=== PATIENT | male | born 1940 | race Caucasian/White ===

== ENCOUNTER 2018-01-16 15:50 | Inpatient (IN) | payer OTHER ==
[~2018-01-16] VITALS: Ht 180.3 cm; Wt 77.1 kg
[2018-01-16 15:53] VITALS: BP 127/67
--- NOTE | 2018-01-16 15:53 | NUR ---
PT BIBA TO ER BED 05
--- NOTE | 2018-01-16 16:00 | NUR ---
PATIENT KAITLIN SQUIRES FROM [facility] PRESENTS TO ED WITH C/O ALOC; ANSWER ALL QUESTIONS APPROPRIATELY; HX; DM, HTN; RX; INSULIN, [place]ARTAN; DENIES N/V/D; SKIN IS PINK/WARM/DRY; AAOX1; LUNGS CLEAR BL; HR EVEN AND REGULAR; PT DENIES ANY FEVER, CP, SOB, OR COUGH AT THIS TIME; PATIENT STATES PAIN OF 0/10 AT THIS TIME; VSS; PATIENT POSITIONED FOR COMFORT; HOB ELEVATED; BEDRAILS UP X2; BED DOWN. ER MD MADE AWARE OF PT STATUS.
[2018-01-16] MEDS ORDERED: LEVOFLOXACIN 500 MG/D5W PREMIX 100 ML IV ONE (16:05)
[2018-01-16] MEDS ORDERED: NACL 0.9% 1,000 ML IV ONE (16:05)
[2018-01-16 16:24] LABS: BASOPHILS % (AUTO) 0.2 % (0.0-2.0); EOSINOPHILS % (AUTO) 0.1 % (0.0-4.0); HEMATOCRIT 39.2 % (36-52); HEMOGLOBIN 13.5 g/dL (12.0-18.0); LYMPHOCYTES # (AUTO) 0.8 K/uL (2.0-11.5); LYMPHOCYTES % (AUTO) 9.6 % (20.5-51.1); MEAN CORPUSCULAR HEMOGLOBIN 28 pg (27-31); MEAN CORPUSCULAR HGB CONC 35 g/dL (33-37); MEAN CORPUSCULAR VOLUME 81.5 fL (80-94); MONOCYTES # (AUTO) 1.1 K/uL (0.8-1.0); NEUTROPHILS # (AUTO) 6.7 K/uL (1.8-7.7); NEUTROPHILS % (AUTO) 77.1 % (42.2-75.2); PLATELET COUNT (AUTO) 217 K/uL (140-450); RED BLOOD CELL COUNT(AUTO) 4.81 MIL/uL (4.20-6.10); RED CELL DISTRIBUTION WIDTH 14.4 % (11.6-13.7); WHITE BLOOD COUNT (AUTO) 8.7 K/uL (4.8-10.8)
[2018-01-16 16:40] LABS: ANION GAP 14.3 (8-16); CARBON DIOXIDE 26.4 mmol/L (21-32); CHLORIDE 103 mmol/L (98-107); CREATININE 1.2 mg/dL (0.7-1.3); GLUCOSE 177 mg/dL (74-106); POTASSIUM 3.7 mmol/L (3.5-5.1); SODIUM SERUM 140 mmol/L (136-145); UREA NITROGEN, BLOOD 29 mg/dL (7-18)
[2018-01-16 16:43] LABS: ALBUMIN 3.4 g/dL (3.4-5.0); ASPARTATE AMINOTRANSFERASE 50 U/L (15-37)
[2018-01-16] MEDS ORDERED: [UNRECOGNIZED DRUG - CODE] PO (16:54)
[2018-01-16] MEDS ORDERED: CLOP75TA55 PO (16:54)
[2018-01-16] MEDS ORDERED: LOSA50TA39 PO (16:54)
[2018-01-16] MEDS ORDERED: ASPI81CT89 PO (16:54)
[2018-01-16] MEDS ORDERED: TERA1CAP7 PO (16:54)
[2018-01-16] MEDS ORDERED: METF500T PO (16:54)
[2018-01-16] MEDS ORDERED: LIP80 PO (16:54)
--- NOTE | 2018-01-16 17:17 | NUR ---
PT UNABLE TO PROVIDE STOOL SAMPLE AT THIS TIME WITH PROVIDED BEDPAN, URINE SAMPLE SEND TO THE LAB
[2018-01-16 17:25] LABS: APPEARANCE,URINE SL CLOUDY (CLEAR); BILIRUBIN,URINE NEGATIVE (NEGATIVE); BLOOD, URINE 2+ (NEGATIVE); COLOR,URINE YELLOW (YELLOW); LEUKOCYTE ESTERASE ,URINE 3+ (NEGATIVE); NITRITE, URINE POSITIVE (NEGATIVE); UGLUCOSE NEGATIVE (NEGATIVE)
[2018-01-16 17:54] LABS: RBC,URINE 11-20 (MOD) /HPF (0-5); WBC,URINE TOO MANY TO COUNT /HPF (0-5)
[2018-01-16] MEDS ORDERED: ACETAMINOPHEN 325 MG TAB PO PRN (18:05)
[2018-01-16] MEDS ORDERED: ONDANSETRON 4 MG/2 ML VIAL IVP PRN (18:05)
--- NOTE | 2018-01-16 18:24 | NUR ---
CALLED TELE FOR BED, CHARGE WILL CALL BACK
[2018-01-16 18:35] LABS: PROTHROMBIN TIME 10.8 secs (10.8-13.4)
[2018-01-16 18:49] LABS: FREE T4 (FREE THYROXINE) 1.13 ng/dL (0.76-1.46); PHOSPHORUS 2.1 mg/dL (2.5-4.9); THYROID STIMULATING HORMONE 1.9 uIU/mL (0.34-3.74)
[2018-01-16 18:50] VITALS: BP 160/69
--- NOTE | 2018-01-16 18:50 | NUR ---
RECEIVED REPORT FROM ER NURSE PETAR. PT IS AAOX3 WITH GENERALIZED WEAKNESS. NO S/S OF ACUTE RESPIRATORY DISTRESS. DX UTI. MRSA DONE. VITALS TAKEN. SAFETY MEASURES IN PLACE. UPDATED BOARD.
--- NOTE | 2018-01-16 19:00 | NUR ---
Patient will be admitted to care of DR REA. Admited to TELE 121A. Belongings list completed. Report to SAJI WRIGHT
--- NOTE | 2018-01-16 19:05 | NUR ---
REPORT GIVEN TO WRAPPER LAYER NURSEKECIA. PT PERINEAL AREA LOOK RED AND SKIN UNDER BREAST IS ALSO RED. IT MIGHT BE INCONTINENT ASSOCIATED DERMATITIS. MADE NIGHT NURSE AWARE. PT GOT CLEANED BY CNAS, PT IN STABLE CONDITION.
--- NOTE | 2018-01-16 19:06 | NUR ---
RECEIVED REPORT FROM DAY SHIFT NURSE AT BEDSIDE FOR CONTINUITY OF CARE. PT IS AAOX3. PT IV NOTED RAC 20G SALINE LOCK. PT NO S/S OF DISTRESS. PT ON RA. NO SOB. NO COMPLAINTS OF PAIN AT THIS TIME. SKIN NON INTACT BLE CHEST CREASE DRYNESS AND BLE INCONTINENT DERMATITIS. BED LOWERED CALL LIGHT WITHIN REACH WILL CONTINUE TO MONITOR.
[2018-01-16] MEDS: NACL 0.9% 1,000 ML IV SCH (19:30)
--- NOTE | 2018-01-16 20:21 | NUR ---
RECEIVED HISTORY FROM DAUGHTER AT BEDSIDE PT IS LAYING IN BED. WILL CONTINUE TO MONITOR.
[2018-01-16] MEDS: DOCUSATE SODIUM 100 MG GELCAP PO SCH (21:16)
--- NOTE | 2018-01-16 21:30 | NUR ---
AWARE OF FULL CODE STATUS ON PT AND PT ON REGULAR DIET. ALSO REQUESTED FOR HYDRAGUARD FOR CHEST AND Z GUARD FOR INCONTINENT DERMATITIS. WILL CONTINUE TO MONITOR.
[2018-01-16] MEDS ORDERED: DEXTROSE 50% 50 ML SYR IVP PRN (22:30)
--- NOTE | 2018-01-16 22:30 | NUR ---
PT GOT UP FROM BED. WENT TO NURSES STATION AND REQUESTED SOMEONE TO TURN OFF THE IV MACHINE. PT APPEARED TO BE CONFUSED. PT WAS ORIENTED BACK TO BED. NEW IV WAS INSERTED RFA 22G. PT WAS PUT ON BED ALARM. AND PT REORIENTED TO CALL LIGHT IF IV IS BEEPING. WILL CONTINUE TO MONITOR.
[2018-01-16] MEDS ORDERED: cefTRIAXone 500 MG VIAL ONE (23:33)
[2018-01-16] MEDS ORDERED: Z-GUARD PASTE TP PRN (23:45)
[2018-01-17] VITALS (7 sets, daily range): BP systolic 101–142; BP diastolic 49–83
--- NOTE | 2018-01-17 | NUR ---
PT PULLED OUT IV FOR THE 2ND TIME. PT IS CONFUSED.
--- NOTE | 2018-01-17 00:30 | NUR ---
PT IS UPSET OF NOISE. REQUESTED FOR DOOR CLOSE BUT PT IS CONFUSED KEEPS WALKING UP AND GETTING OUT OF BED AND ASKING FOR THE TIME.
[2018-01-17] MEDS ORDERED: Z-GUARD PASTE TP ONE (01:53)
[2018-01-17] MEDS ORDERED: HYDRAGUARD CREAM TP ONE (01:53)
--- NOTE | 2018-01-17 04:42 | NUR ---
PT IS ASLEEP. NO S/S OF DISTRESS. NO SOB. ON RA. WILL CONTINUE TO MONITOR.
[2018-01-17] MEDS: BLOOD GLUCOSE MONITORING 1 DEV DEV FS SCH ×4 (06:21→21:06)
[2018-01-17] MEDS: INSULIN LISPRO SLIDING SCALE 100 UNITS/ML VIAL SUBQ PRN (06:27)
--- NOTE | 2018-01-17 07:15 | NUR ---
GAVE REPORT TO DAYSHIFT NURSE AT BEDSIDE FOR CONTINUITY OF CARE.
--- NOTE | 2018-01-17 07:20 | NUR ---
RECEIVED REPORT FROM COLLAR POINTER NURSE, PT IS AAOX2, PT HAS IV ON HIS LEFT FA, PATENT, INTACT, FLUSHING WELL, NO S/S OF RESPIRATORY DISTRESS OR DISCOMFORT NOTED, PT HAS INCONTINENT DERMATITIS, AROUND THE GROIN AREA, PT HAS DRYNESS ON HIS CHEST, DISCUSSED PLAN OF CARE WITH PT, PT VERBALIZED UNDERSTANDING, CALL LIGHT IS WITHIN REACH, SAFETY/FALL PRECAUTIONS ARE IN PLACE, CALL LIGHT IS WITHIN REACH, WILL CONTINUE TO MONITOR.
[2018-01-17] MEDS: ASPIRIN 81 MG TAB.CHEW PO SCH (08:37)
[2018-01-17] MEDS: ATORVASTATIN 80 MG TAB PO SCH (08:37)
[2018-01-17] MEDS: LOSARTAN 50 MG TAB PO SCH (08:37)
[2018-01-17] MEDS: CLOPIDOGREL 75 MG TAB PO SCH (08:37)
[2018-01-17] MEDS: LACTOBACILLUS RHAMNOSUS GG 1 EACH CAP PO SCH (08:38)
[2018-01-17] MEDS: HYDRAGUARD CREAM TP SCH (08:38)
[2018-01-17] MEDS: metFORMIN 500 MG TAB PO SCH ×2 (08:38→20:28)
[2018-01-17] MEDS: DOCUSATE SODIUM 100 MG GELCAP PO SCH ×2 (08:38→20:27)
--- NOTE | 2018-01-17 08:38 | NUR ---
DUE MEDICATIONS GIVEN, PT TOLERATED WELL, CALL LIGHT IS WITHIN REACH.
--- NOTE | 2018-01-17 08:56 | NUR ---
PATIENT HAS BEEN SCREENED AND CATEGORIZED HIGH NUTRITION RISK. PATIENT WILL BE SEEN WITHIN 1-2 DAYS OF ADMISSION. 01/17/18 01/18/[address]
[2018-01-17] MEDS ORDERED: DOCUSATE SODIUM 100 MG GELCAP PO SCH (09:00)
--- NOTE | 2018-01-17 10:20 | NUR ---
PT SLEEPING IN BED AT THIS TIME, CALL LIGHT WITHIN REACH.
--- NOTE | 2018-01-17 14:30 | NUR ---
PT HAD LOOSE, SMALL BOWEL MOVEMENT. PATIENT'S GOWN, LINENS CHANGED. ALL NEEDS ARE MET AT THIS TIME, PT GIVEN A BEDSIDE COMMODE. CALL LIGHT IS WITHIN REACH.
--- NOTE | 2018-01-17 15:15 | NUR ---
01/17/18 RD INITIAL ASSESSMENT COMPLETED PLEASE REFER TO NUTRITION ASSESSMENT UNDER CARE ACTIVITY FOR ESTIMATED NUTRITIONAL NEEDS. 1. CONTINUE CCHO 60 GM DIET TOLERATED 2. PROVIDE NUTRITION EDUCATION FOR DIARRHEA 3. RD TO FOLLOW-UP 3-5 DAYS, MODERATE RISK TERESITA SLOAN, RD
[2018-01-17] MEDS: NACL 0.9% 1,000 ML IV SCH (15:39)
--- NOTE | 2018-01-17 16:30 | NUR ---
PT IS RESTING IN BED, CALL LIGHT IS WITHIN REACH.
--- NOTE | 2018-01-17 18:05 | NUR ---
PATIENT PULLED OUT HIS IV. PT CONFUSED, PT ORIENTED BACK INTO BED.
[2018-01-17] MEDS ORDERED: SODIUM PHOS / POTASSIUM PHOS 1 PKT PDR PO SCH (18:15)
--- NOTE | 2018-01-17 19:00 | NUR ---
NEW IV INSERTED ON HIS RIGHT HAND, #20 G, PATENT, INTACT, FLUSHING WELL.
--- NOTE | 2018-01-17 19:30 | NUR ---
ENDORSED PT TO WARDROBE SPECIALIST NURSE FOR CONTINUITY OF CARE. PT STABLE AT THIS TIME.
--- NOTE | 2018-01-17 19:31 | NUR ---
RECEIVED PT REPORT FROM DAYSHIFT NURSE AT BEDSIDE FOR CONTINUITY OF CARE. PT AWAKE AOX2. PATIENT IS CONFUSED AT TIMES AND IS BOTHERED FROM LOUD NOISES. IV NOTED L HAND 20G NS 50ML/HR. NO S/S OF DISTRESS. NO SOB. PT ON ROOM AIR. BED LOWERED BED ALARM ARMED. CALL LIGHT WITHIN REACH. WILL CONTINUE TO MONITOR.
[2018-01-17] MEDS: TERAZOSIN 1 MG CAP PO SCH (20:28)
--- NOTE | 2018-01-17 20:30 | NUR ---
GAVE THE PATIENT HIS MEDS. PT TOOK MEDS WELL. PT IS BOTHERED FROM NOISE. PT WAS ON BEDSIDE COMMODE. WILL CONTINUE TO MONITOR.
[2018-01-17] MEDS ORDERED: TEMAZEPAM 15 MG CAP ONE (22:16)
--- NOTE | 2018-01-17 23:02 | NUR ---
PT IS SLEEPING. NO SOB. NO S/S OF DISTRESS. WILL CONTINUE TO MONITOR.
[2018-01-18 04:00] VITALS: BP 125/44
--- NOTE | 2018-01-18 04:09 | NUR ---
ASSESSED PT VITALS. PT ASLEEP. WILL CONTINUE TO MONITOR.
[2018-01-18 06:03] LABS: BASOPHILS % (AUTO) 0.3 % (0.0-2.0); EOSINOPHILS # (AUTO) 0.1 K/uL (0-0.4); EOSINOPHILS % (AUTO) 1.4 % (0.0-4.0); HEMATOCRIT 35.6 % (36-52); HEMOGLOBIN 12.1 g/dL (12.0-18.0); LYMPHOCYTES # (AUTO) 1.2 K/uL (2.0-11.5); LYMPHOCYTES % (AUTO) 14.7 % (20.5-51.1); MEAN CORPUSCULAR HEMOGLOBIN 28 pg (27-31); MEAN CORPUSCULAR HGB CONC 34 g/dL (33-37); MEAN CORPUSCULAR VOLUME 81.2 fL (80-94); MONOCYTES % (AUTO) 12.6 % (1.7-9.3); NEUTROPHILS # (AUTO) 5.6 K/uL (1.8-7.7); PLATELET COUNT (AUTO) 194 K/uL (140-450); RED BLOOD CELL COUNT(AUTO) 4.39 MIL/uL (4.20-6.10); RED CELL DISTRIBUTION WIDTH 14.2 % (11.6-13.7); WHITE BLOOD COUNT (AUTO) 7.9 K/uL (4.8-10.8)
[2018-01-18 06:27] LABS: ANION GAP 14.5 (8-16); CARBON DIOXIDE 22.8 mmol/L (21-32); CHLORIDE 108 mmol/L (98-107); CREATININE 0.9 mg/dL (0.7-1.3); GLUCOSE 137 mg/dL (74-106); POTASSIUM 3.3 mmol/L (3.5-5.1); SODIUM SERUM 142 mmol/L (136-145); UREA NITROGEN, BLOOD 28 mg/dL (7-18)
[2018-01-18 06:34] LABS: MAGNESIUM 2.2 mg/dL (1.8-2.4); PHOSPHORUS 3.7 mg/dL (2.5-4.9)
[2018-01-18] MEDS: BLOOD GLUCOSE MONITORING 1 DEV DEV FS SCH ×4 (06:54→21:37)
--- NOTE | 2018-01-18 07:25 | NUR ---
GAVE PT REPORT AT BEDSIDE TO DAYSHIFT NURSE FOR CONTINUITY OF CARE.
[2018-01-18 08:00] VITALS: BP 124/66
--- NOTE | 2018-01-18 08:00 | NUR ---
INITIAL ASSESSMENT PERFORMED.ALERT AND ABLE TO MAKE NEEDS KNOWN. NO ACUTE DISTRESS NOTED. LUNG SOUNDS CLEAR. BOWEL SOUNDS ACTIVE. PATIENT STATED LBM 01/17/18. PATIENT CONT ON CCHO DIET AND TOLERATING WELL. DENIES PAIN AT THIS TIME.PATIENT WITH SCALY REDNESS TO BILAT UNDER BREAST. AND REDNESS TO GROIN AND BUTTOCKS. PATIENT WITH LEFT HAND 20G WITH NS RUNNING AT 50ML/HR. BOARD UPDATED. DISCUSSED PLAN OF CARE WITH PATIENT AT BEDSIDE. PATIENT ORIENTED TO ROOM. CALL LIGHT WITHIN REACH. WILL CONT TO MONITOR.
[2018-01-18] MEDS: HYDRAGUARD CREAM TP SCH (08:25)
[2018-01-18] MEDS: SODIUM PHOS / POTASSIUM PHOS 1 PKT PDR PO SCH (08:26)
[2018-01-18] MEDS: DOCUSATE SODIUM 100 MG GELCAP PO SCH ×2 (08:26→21:36)
[2018-01-18] MEDS: LACTOBACILLUS RHAMNOSUS GG 1 EACH CAP PO SCH (08:26)
[2018-01-18] MEDS: metFORMIN 500 MG TAB PO SCH ×2 (08:26→21:36)
[2018-01-18] MEDS: ASPIRIN 81 MG TAB.CHEW PO SCH (08:26)
[2018-01-18] MEDS: ATORVASTATIN 80 MG TAB PO SCH (08:26)
[2018-01-18] MEDS: CLOPIDOGREL 75 MG TAB PO SCH (08:26)
[2018-01-18] MEDS: LOSARTAN 50 MG TAB PO SCH (08:27)
--- NOTE | 2018-01-18 08:30 | NUR ---
ADMINISTERED MORNING MEDICATIONS ORDERED. TOLERATED WELL. WILL CONT TO MONITOR.
[2018-01-18] MEDS: NACL 0.9% 1,000 ML IV SCH (09:00)
[2018-01-18] MEDS ORDERED: POTASSIUM CHLORIDE 10 MEQ TABER PO SCH (09:30)
--- NOTE | 2018-01-18 11:07 | NUR ---
PATIENT HAD LARGE BM IN BSC. PATIENT SITTING AT BEDSIDE WITH BED ALARM ON. WILL CONT TO MONITOR.
[2018-01-18 12:00] VITALS: BP 119/67
[2018-01-18] MEDS: INSULIN LISPRO SLIDING SCALE 100 UNITS/ML VIAL SUBQ PRN ×2 (12:45→21:40)
--- NOTE | 2018-01-18 12:45 | NUR ---
PATIENT HAD LUNCH AND TOLERATED WELL. PATIENT THEN HAD BM USING BSC. WILL CONT TO MONITOR.
--- NOTE | 2018-01-18 14:34 | NUR ---
PATIENT IN ROOM BEING CHANGED. PATIENT HAD BM. PATIENT CLEAN AND DRY. WILL CONT TO MONITOR.
[2018-01-18 16:00] VITALS: BP 133/69
--- NOTE | 2018-01-18 17:21 | NUR ---
PATIENT IN BED RESTING. NO ACUTE DISTRESS. RESP EVEN AND UNLABORED. WILL CONT TO MONITOR.
--- NOTE | 2018-01-18 19:18 | NUR ---
ENDORSED REPORT TO HEATER INSTALLER NURSE. PATIENT STABLE.
--- NOTE | 2018-01-18 19:25 | NUR ---
RECEIVED FROM AM RN IN BED SLEEPING. WOKE UP EASILY WHEN CALLED BY NAME. DX. OF UTI. PT. NOTED WITH CONFUSION. PER AM RN HE CAN STAND UP AND GOES BEDSIDE COMMODE. IVF SITE PULLED OUT UNDER HIS BLANKET AND BEEN HOLDING IT IN HIS HAND WHEN I INSPECTED IT. TIP INTACT. BED ALARM ON AND PT. IS SITUATED NEAR NURSING UNIT. SEQUENTIALS IN PLACE. WILL INSERT NEW IVF LINE. AFEBRILE. NEEDS WILL BE ANTICIPATED AND WILL BE MET.
[2018-01-18] MEDS ORDERED: TEMAZEPAM 15 MG CAP PO SCH (21:00)
[2018-01-18] MEDS: TERAZOSIN 1 MG CAP PO SCH (21:37)
--- NOTE | 2018-01-18 21:45 | NUR ---
PT. ABLE TO SWALLOW ALL P.O. MEDICATIONS. NO ASPIRATION S/S NOTED. PT. ABLE TO VERBALIZE NEEDS.
--- NOTE | 2018-01-19 00:15 | NUR ---
SLEEPING.CALL LIGHT WITH IN REACH AND BED ALARM ON.
[2018-01-19 00:38] VITALS: BP 125/50
--- NOTE | 2018-01-19 02:49 | NUR ---
SLEEPING. NO RESTLESSNESS. PT. TURNED BY CNAS Q 2H. ENCOURAGED TO TURN. ABLE TO MOVE SELF.
[2018-01-19 06:13] LABS: BASOPHILS % (AUTO) 0.4 % (0.0-2.0); EOSINOPHILS # (AUTO) 0.1 K/uL (0-0.4); EOSINOPHILS % (AUTO) 1.9 % (0.0-4.0); HEMOGLOBIN 11.8 g/dL (12.0-18.0); LYMPHOCYTES # (AUTO) 1.3 K/uL (2.0-11.5); LYMPHOCYTES % (AUTO) 17.1 % (20.5-51.1); MEAN CORPUSCULAR HEMOGLOBIN 28 pg (27-31); MEAN CORPUSCULAR HGB CONC 34 g/dL (33-37); MEAN CORPUSCULAR VOLUME 82.2 fL (80-94); MONOCYTES # (AUTO) 0.8 K/uL (0.8-1.0); MONOCYTES % (AUTO) 11.1 % (1.7-9.3); NEUTROPHILS # (AUTO) 5.1 K/uL (1.8-7.7); NEUTROPHILS % (AUTO) 69.5 % (42.2-75.2); PLATELET COUNT (AUTO) 220 K/uL (140-450); RED BLOOD CELL COUNT(AUTO) 4.26 MIL/uL (4.20-6.10); RED CELL DISTRIBUTION WIDTH 14.4 % (11.6-13.7); WHITE BLOOD COUNT (AUTO) 7.3 K/uL (4.8-10.8)
[2018-01-19 06:33] LABS: ANION GAP 10.8 (8-16); CARBON DIOXIDE 26.5 mmol/L (21-32); CHLORIDE 108 mmol/L (98-107); GLUCOSE 143 mg/dL (74-106); POTASSIUM 3.3 mmol/L (3.5-5.1); SODIUM SERUM 142 mmol/L (136-145); UREA NITROGEN, BLOOD 22 mg/dL (7-18)
[2018-01-19 06:40] LABS: MAGNESIUM 2.3 mg/dL (1.8-2.4); PHOSPHORUS 3.5 mg/dL (2.5-4.9)
[2018-01-19] MEDS: BLOOD GLUCOSE MONITORING 1 DEV DEV FS SCH ×2 (06:42→11:30)
--- NOTE | 2018-01-19 07:10 | NUR ---
RECEIVED REPORT FROM TOBACCO DRUMMER RN. PATIENT IS AAOX2-3, HAS NO SIGNS AND SYMPTOMS OF ACUTE DISTRESS NOTED AT THIS TIME. DISCUSSED PLAN OF CARE WITH PATIENT AND HE VERBALIZED UNDERSTANDING. HAS IV TO THE LEFT WRIST 20G, INFUSING NS AT 50ML/HR. SITE IS CLEAN, DRY, PATENT AND INTACT. BEDSIDE COMMODE IS NEXT TO BED. BED IN LOWEST POSITION, SIDE RAILS UP X2, CALL LIGHT WITHIN REACH. WILL CONTINUE TO MONITOR.
--- NOTE | 2018-01-19 07:27 | NUR ---
SLEPT WELL THIS SHIFT. ASSISTED TO BEDSIDE COMMODE RT FEELING OF GOING BM. ONLY HAD 1 LIQUIDY STOOL X 1 IN BED. ENDORSED TO THE NEXT RN FOR CONTINUITY OF CARE AWAKE AND ALERT. ABLE TO ANSWER BACK SIMPLE QUESTIONS WITHOUT S/S OF CONFUSION. DENIES PAIN.
[2018-01-19] MEDS: NACL 0.9% 1,000 ML IV SCH (07:30)
[2018-01-19 08:00] VITALS: BP 140/59
[2018-01-19] MEDS: ASPIRIN 81 MG TAB.CHEW PO SCH (09:03)
[2018-01-19] MEDS: metFORMIN 500 MG TAB PO SCH (09:04)
[2018-01-19] MEDS: DOCUSATE SODIUM 100 MG GELCAP PO SCH (09:04)
[2018-01-19] MEDS: ATORVASTATIN 80 MG TAB PO SCH (09:04)
[2018-01-19] MEDS: SODIUM PHOS / POTASSIUM PHOS 1 PKT PDR PO SCH (09:04)
[2018-01-19] MEDS: CLOPIDOGREL 75 MG TAB PO SCH (09:04)
[2018-01-19] MEDS: LOSARTAN 50 MG TAB PO SCH (09:04)
[2018-01-19] MEDS: HYDRAGUARD CREAM TP SCH (09:07)
[2018-01-19] MEDS ORDERED: POTASSIUM CHLORIDE 10 MEQ TABER PO SCH (09:30)
[2018-01-19] MEDS: LACTOBACILLUS RHAMNOSUS GG 1 EACH CAP PO SCH (09:35)
[2018-01-19] MEDS ORDERED: METF500T PO (10:48)
[2018-01-19] MEDS ORDERED: LACT1.4C PO (10:48)
[2018-01-19] MEDS ORDERED: LEVO750T2 PO (10:49)
--- NOTE | 2018-01-19 13:45 | NUR ---
DISCHARGE ORDER IS IN PLACE, PATIENT GOING BACK TO [facility]. DAUGHTER HERE TO TRANSPORT HIM OVER. SAJI FOX HAD THEM SIGN THE PAPERWORK AND GAVE THEM DISCHARGE INSTRUCTION. SHE ALSO REMOVED THE IV FROM SITE. PATIENT WHEELED OUT.
== END 2018-01-19 13:45 | disposition home or self-care (01) | DRG 371 ==
LOC: MED 15:50 → MMU 18:12 → MTU 18:50
PROVIDERS: ADMIT Family Medicine Sports Medicine; ATTEND Family Medicine Sports Medicine
DX: A04.72 Enterocolitis due to Clostridium difficile, not specified as recurrent (principal); N17.0 Acute kidney failure with tubular necrosis; D68.59 Other primary thrombophilia; E11.65 Type 2 diabetes mellitus with hyperglycemia; E11.51 Type 2 diabetes mellitus with diabetic peripheral angiopathy without gangrene; E11.69 Type 2 diabetes mellitus with other specified complication; N39.0 Urinary tract infection, site not specified; E83.39 Other disorders of phosphorus metabolism; A08.4 Viral intestinal infection, unspecified; E86.0 Dehydration; N40.0 Benign prostatic hyperplasia without lower urinary tract symptoms; E78.5 Hyperlipidemia, unspecified; E87.6 Hypokalemia; I10 Essential (primary) hypertension; Z79.82 Long term (current) use of aspirin; Z79.899 Other long term (current) drug therapy; Z87.891 Personal history of nicotine dependence; Z86.73 Personal history of transient ischemic attack (TIA), and cerebral infarction without residual deficits; Z79.84 Long term (current) use of oral hypoglycemic drugs; D64.9 Anemia, unspecified; E87.8 Other disorders of electrolyte and fluid balance, not elsewhere classified
CPT/HCPCS: 36415; 71045; 80048; 80053; 81001; 82150; 82948; 83036; 83605; 83690; 83735; 83880; 84100; 84439; 84443; 84484; 85025; 85610; 85730; 87040; 87045; 87081; 87086; 87186; 93005; 93925; 93970; 96361; 96365; 99285; J0696; J1815; J1956; J7030; J7060; Q0092

== ENCOUNTER 2019-01-06 20:44 | Emergency (ER) | payer OTHER ==
[~2019-01-06] VITALS: Ht 175.3 cm; Wt 77.1 kg
[~2019-01-06 20:44] MED LIST: ASPI-1718 PO; CLOP75TA55 PO; LACT1.4C PO; LEVO750T2 PO; LIP80 PO; LOSA50TA66 PO; METF500T PO; TERA1CAP7 PO; [UNRECOGNIZED DRUG - CODE] PO
[2019-01-06 20:47] VITALS: BP 157/77
--- NOTE | 2019-01-06 20:50 | NUR ---
Alma humphries in ED - 01/06/19 at 2054 by DEBBIE PT AMBULATED BACK TO [facility]
--- NOTE | 2019-01-06 21:07 | NUR ---
PT TO BED 3.
--- NOTE | 2019-01-06 21:31 | NUR ---
DR. MILLER EVALUATING PT BEDSIDE
--- NOTE | 2019-01-06 21:38 | NUR ---
PT PRESENTS TO ED WITH C/O RLQ ABD PAIN INCREASING OVER 3 DAYS. PT DENIES N/V. BUT REPORTS DIARRHEA. ABD IS SOFT NON TENDER. PT REPORTS MILD PAIN TO PALPATION OF RLQ. NO OBVIOUS DISTENTION NOTED. PT PLACED INTO BED, PENDING MD BOATENG.
[2019-01-06 21:53] LABS: BASOPHILS # (AUTO) 0.1 K/uL (0.00-0.22); EOSINOPHILS # (AUTO) 0.1 K/uL (0-0.4); EOSINOPHILS % (AUTO) 1.4 % (0.0-4.0); HEMATOCRIT 33.5 % (36-52); HEMOGLOBIN 11.3 g/dL (12.0-18.0); LYMPHOCYTES # (AUTO) 1.6 K/uL (2.0-11.5); LYMPHOCYTES % (AUTO) 18.2 % (20.5-51.1); MEAN CORPUSCULAR HEMOGLOBIN 28 pg (27-31); MEAN CORPUSCULAR HGB CONC 34 g/dL (33-37); MEAN CORPUSCULAR VOLUME 82.6 fL (80-94); MONOCYTES # (AUTO) 0.7 K/uL (0.8-1.0); MONOCYTES % (AUTO) 7.8 % (1.7-9.3); NEUTROPHILS # (AUTO) 6.2 K/uL (1.8-7.7); NEUTROPHILS % (AUTO) 71.6 % (42.2-75.2); PLATELET COUNT (AUTO) 300 K/uL (140-450); RED BLOOD CELL COUNT(AUTO) 4.05 MIL/uL (4.20-6.10); RED CELL DISTRIBUTION WIDTH 14.7 % (11.6-13.7); WHITE BLOOD COUNT (AUTO) 8.6 K/uL (4.8-10.8)
--- NOTE | 2019-01-06 21:54 | NUR ---
PT UNABLE TO VOID AT THIS TIME. PROVIDED WITH URINAL AT BEDSIDE, ENCOURAGED TO USE.
--- NOTE | 2019-01-06 21:55 | NUR ---
PT TO CT VIA [facility].
[2019-01-06 22:00] LABS: ANION GAP 14.1 (8-16); CARBON DIOXIDE 26.2 mmol/L (21-32); CHLORIDE 104 mmol/L (98-107); CREATININE 1.5 mg/dL (0.7-1.3); GLUCOSE 120 mg/dL (74-106); POTASSIUM 4.3 mmol/L (3.5-5.1); SODIUM SERUM 140 mmol/L (136-145); UREA NITROGEN, BLOOD 21 mg/dL (7-18)
[2019-01-06 22:06] LABS: ALBUMIN 3.6 g/dL (3.4-5.0); ASPARTATE AMINOTRANSFERASE 20 U/L (15-37); LIPASE 200 U/L (73-393); TOTAL BILIRUBIN 0.4 mg/dL (0.0-1.0)
[2019-01-06 22:28] LABS: APPEARANCE,URINE HAZY (CLEAR); BILIRUBIN,URINE NEGATIVE (NEGATIVE); BLOOD, URINE TRACE-L (NEGATIVE); COLOR,URINE YELLOW (YELLOW); LEUKOCYTE ESTERASE ,URINE 3+ (NEGATIVE); NITRITE, URINE NEGATIVE (NEGATIVE); UGLUCOSE NEGATIVE (NEGATIVE)
[2019-01-06 22:38] LABS: RBC,URINE 0-5 /HPF (0-5); WBC,URINE TOO MANY TO COUNT /HPF (0-5)
--- NOTE | 2019-01-07 00:15 | NUR ---
# 14 FR Peace catheter with 10 ml utilizing sterile technique. Immediate return of 100 ml urine noted. Bedside drainage bag placed below level of bladder. Urine sample collected and sent to lab. Pt tolerated procedure WELL.
[2019-01-07] MEDS ORDERED: cefTRIAXone 1,000 MG in LIDOCAINE MPF 1% - 5 mL VIAL 2.1 ML IM ONE (00:20)
[2019-01-07] MEDS ORDERED: LIDOCAINE MPF 1% 5mL VIAL ONE (00:30)
[2019-01-07] MEDS ORDERED: cefTRIAXone 1,000 MG VIAL ONE (00:30)
--- NOTE | 2019-01-07 01:13 | NUR ---
1800ML RED URINE EMPTIED FROM BARBER DRAINAGE BAG. DRAINAGE BAG SWITCHED TO LEG BAG.
[2019-01-07 01:22] VITALS: BP 167/72
--- NOTE | 2019-01-07 01:23 | NUR ---
Patient discharged with v/s stable. Written and verbal after care instructions given and explained. Patient alert, oriented and verbalized understanding of instructions. Ambulatory with steady gait to [facility] via taxi, to be received by facility person verified by surveyor. All questions addressed prior to discharge. ID band removed. Patient advised to follow up with PMD. Rx of KEFLEX given. Patient educated on indication of medication including possible reaction and side effects. Opportunity to ask questions provided and answered.
== END 2019-01-07 01:23 | disposition home or self-care (01) ==
LOC: MED 20:44
DX: R33.9 Retention of urine, unspecified (principal); N39.0 Urinary tract infection, site not specified; E11.9 Type 2 diabetes mellitus without complications; I10 Essential (primary) hypertension; Z79.82 Long term (current) use of aspirin; Z79.84 Long term (current) use of oral hypoglycemic drugs; Z79.899 Other long term (current) drug therapy
CPT/HCPCS: 36415; 51702; 74176; 80053; 81001; 83690; 85025; 87086; 96372; 99284; J0696; J2001

== ENCOUNTER 2019-09-21 15:31 | Emergency (ER) | payer OTHER ==
[~2019-09-21] VITALS: Ht 180.3 cm; Wt 81.6 kg
[2019-09-21 15:38] VITALS: BP 114/60
--- NOTE | 2019-09-21 15:40 | NUR ---
JESUS ALBERTO FROM [facility] C/O RIGHT BACK PAIN S/P FALL X 1.30 HOURS AGO. MED HX: DM, ALZHEIMER, HTN. PATIENT STATES PAIN OF 7/10 AT THIS TIME. PATIENT POSITIONED FOR COMFORT; HOB ELEVATED; BEDRAILS UP X1; BED DOWN. ER MD MADE AWARE OF PT STATUS.
--- NOTE | 2019-09-21 18:00 | NUR ---
CALLED [place] [phone]; NO ANSWERING.
[2019-09-21 18:05] VITALS: BP 111/60
--- NOTE | 2019-09-21 18:05 | NUR ---
Patient discharged with v/s stable. Written and verbal after care instructions given and explained. Patient verbalized understanding. Ambulatory with to longterm. All questions addressed prior to discharge. Advised to follow up with PMD.
== END 2019-09-21 18:05 | disposition home or self-care (01) ==
LOC: MED 15:31
DX: M54.9 Dorsalgia, unspecified (principal); E11.9 Type 2 diabetes mellitus without complications; I10 Essential (primary) hypertension; G30.9 Alzheimer's disease, unspecified; Z79.82 Long term (current) use of aspirin; Z79.84 Long term (current) use of oral hypoglycemic drugs; Z79.899 Other long term (current) drug therapy; W19.XXXA Unspecified fall, initial encounter; Y93.89 Activity, other specified; Y92.89 Other specified places as the place of occurrence of the external cause; Y99.8 Other external cause status
CPT/HCPCS: 81002; 99284

== ENCOUNTER 2019-10-19 23:07 | Emergency (ER) | payer OTHER ==
[~2019-10-19] VITALS: Ht 172.7 cm; Wt 70.3 kg
--- NOTE | 2019-10-19 23:07 | NUR ---
PT JESUS ALBERTO BLS. TAKEN TO BED 5
[2019-10-19 23:09] VITALS: BP 113/65
--- NOTE | 2019-10-19 23:12 | NUR ---
79 Y/O MALE BIBA WITH C/O ALTERED MENTAL STATUS AND WORSENING VISION SINCE THIS MORNING. PER EMS PT HAS BEEN MORE VERBALLY AGGRESSIVE TOWARD STAFF AT [facility]. STATES NO PAIN AT THIS TIME. GCS 14. RR EVEN AND UNLABORED. DENIES N/V/D. PT LAYING IN BED CALM AND PLEASANT. VSS MEDHX: DM, HTN, ALZHEIMERS
--- NOTE | 2019-10-19 23:36 | NUR ---
Dr. Melgoza examining patient.
--- NOTE | 2019-10-20 00:03 | NUR ---
PT GIVEN URINAL FOR URINE COLLECTION.
--- NOTE | 2019-10-20 00:15 | NUR ---
PATIENT UNABLE TO URINATE. STRAIGHT CATH USED TO COLLECTED URINE SAMPLE USING STERILE TECHNIQUE. PATIENT TOLERATED PROCEDURE WELL.
[2019-10-20 00:20] LABS: BASOPHILS % (AUTO) 0.4 % (0.0-2.0); EOSINOPHILS # (AUTO) 0.1 K/uL (0-0.4); EOSINOPHILS % (AUTO) 1.3 % (0.0-4.0); HEMATOCRIT 33.4 % (36-52); LYMPHOCYTES # (AUTO) 1.6 K/uL (2.0-11.5); LYMPHOCYTES % (AUTO) 15.3 % (20.5-51.1); MEAN CORPUSCULAR HEMOGLOBIN 26 pg (27-31); MEAN CORPUSCULAR HGB CONC 33 g/dL (33-37); MEAN CORPUSCULAR VOLUME 80.2 fL (80-94); MONOCYTES # (AUTO) 0.8 K/uL (0.8-1.0); MONOCYTES % (AUTO) 7.8 % (1.7-9.3); NEUTROPHILS # (AUTO) 7.6 K/uL (1.8-7.7); NEUTROPHILS % (AUTO) 75.2 % (42.2-75.2); PLATELET COUNT (AUTO) 331 K/uL (140-450); RED BLOOD CELL COUNT(AUTO) 4.16 MIL/uL (4.20-6.10); RED CELL DISTRIBUTION WIDTH 15.3 % (11.6-13.7); WHITE BLOOD COUNT (AUTO) 10.2 K/uL (4.8-10.8)
[2019-10-20 00:37] LABS: ANION GAP 16.7 (8-16); CARBON DIOXIDE 24.9 mmol/L (21-32); CHLORIDE 104 mmol/L (98-107); CREATININE 1.5 mg/dL (0.6-1.3); GLUCOSE 124 mg/dL (74-106); POTASSIUM 3.6 mmol/L (3.5-5.1); SODIUM SERUM 142 mmol/L (136-145)
--- NOTE | 2019-10-20 00:39 | NUR ---
PATIENT ATTEMPTING TO GET OUT OF BED. RE-ORIENTED PT AND DIRECTED BACK TO BED. SIDE RAILS UP AND LIGHTS DIMMED.
[2019-10-20 00:58] LABS: UREA NITROGEN, BLOOD 19 mg/dL (7-18)
[2019-10-20 01:40] LABS: APPEARANCE,URINE CLOUDY (CLEAR); BILIRUBIN,URINE NEGATIVE (NEGATIVE); BLOOD, URINE 1+ (NEGATIVE); COLOR,URINE YELLOW (YELLOW); LEUKOCYTE ESTERASE ,URINE 3+ (NEGATIVE); NITRITE, URINE POSITIVE (NEGATIVE); UGLUCOSE NEGATIVE (NEGATIVE)
[2019-10-20 01:41] LABS: RBC,URINE 0-5 /HPF (0-5)
[2019-10-20 01:42] LABS: WBC,URINE TOO MANY TO COUNT /HPF (0-5)
--- NOTE | 2019-10-20 01:46 | NUR ---
.LAYING IN BED, VISIBLE RISE AND FALL OF THE CHEST. PT ASKING TO GET OUT OF BED, EASILY REDIRECTED. VSS. WILL CONTINUE TO MONITOR .
[2019-10-20] MEDS ORDERED: cefTRIAXone 1,000 MG in LIDOCAINE MPF 1% 2.1 ML IM ONE (01:50)
[2019-10-20] MEDS ORDERED: LIDOCAINE MPF 1% 5 ML ONE (01:52)
[2019-10-20] MEDS ORDERED: cefTRIAXone 1,000 MG VIAL ONE (01:52)
--- NOTE | 2019-10-20 02:10 | NUR ---
PT REFUSED TO BE ON MONITOR.
--- NOTE | 2019-10-20 03:14 | NUR ---
PT TRYING TO GET OUT OF BED, EASILY REDIRECTED. RR EVEN AND UNLABORED. WILL CONTINUE TO MONITOR.
--- NOTE | 2019-10-20 04:05 | NUR ---
[facility] AT BEDSIDE
--- NOTE | 2019-10-20 04:11 | NUR ---
ATTEMPTED TO CALL [facility] TO MAKE THEM AWARE PT IS RETURNING TO FACILITY, NO ANSWER
[2019-10-20 04:12] VITALS: BP 114/70
--- NOTE | 2019-10-20 04:12 | NUR ---
Alma humphries in [facility] - 10/20/19 at 0413 by DEVON PT TAKEN BY PRE
--- NOTE | 2019-10-20 04:12 | NUR ---
PT TAKEN BY PRE
--- NOTE | 2019-10-20 04:12 | NUR ---
Patient discharged with v/s stable. Written and verbal after care instructions given and explained. Patient alert, oriented and verbalized understanding of instructions. Wheel Chair Assisted with to fpc. All questions addressed prior to discharge. ID band removed. Patient advised to follow up with PMD. Rx of KEFLEX given. Patient educated on indication of medication including possible reaction and side effects. Opportunity to ask questions provided and answered.
== END 2019-10-20 04:12 | disposition home or self-care (01) ==
LOC: MED 23:07
DX: N39.0 Urinary tract infection, site not specified (principal); R41.82 Altered mental status, unspecified; R41.0 Disorientation, unspecified; E11.9 Type 2 diabetes mellitus without complications; F03.90 Unspecified dementia, unspecified severity, without behavioral disturbance, psychotic disturbance, mood disturbance, and anxiety; I10 Essential (primary) hypertension; Z79.82 Long term (current) use of aspirin; Z79.84 Long term (current) use of oral hypoglycemic drugs; Z79.899 Other long term (current) drug therapy
CPT/HCPCS: 36415; 80048; 81001; 85025; 87086; 87186; 96372; 99283; J0696; J2001